=== PATIENT | male | born 1980 | race Two or more races ===

== ENCOUNTER 2018-05-26 14:42 | Emergency (ER) | payer OTHER ==
--- OUTSIDE RECORDS SUMMARY | 2018-05-26 14:48 | XMS REPORT ---
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 Cigarette Use Never Smoked Cigarettes ETOH Use Rarely consumes beer Smoking Patient has never smoked Recreational Drug Use Denies Drug Use Exercise Type/Frequency Exercises sporadically walks on occ Sexual Hx text yes Allergies, Adverse Reactions, Alerts Date Description Reaction Status Severity Comments 12/16/2012 Sulfa Antibiotics rash active Medications Medication Date Status Form Strength Qnty SIG Indications Ordering Provider Multi Vitamin Active Tablets Unknown Daily No Active 12/16/2012 Hx Unknown Medications - 08/31/2014 Medications Administered in Office Medication Date Status Form Strength Qnty SIG Indications Ordering Provider PPD Administered Injection Neal Baig M.D. PPD Administered Injection Nurse Visit 6 C Immunizations CPT Code Status Date Vaccine Lot # [id number] Given 03/07/2016 Varicella (Chicken Pox) Immunization [id number] Given 12/28/2015 Varicella (Chicken Pox) Immunization [id number] Given 08/09/2013 Tdap - Tetanus/Diptheria/Acellular Pertussis [id number] Vital Signs Date Vital Result Comment 05/21/2018 Height 69 inches 5'9" Weight 151.00 lb Heart Rate 68 /min BP Systolic Sitting 114 mmHg BP Diastolic Sitting 68 mmHg O2 % BldC Oximetry 96 % BMI (Body Mass Index) 22.3 kg/m2 06/24/2017 Height 69 inches 5'9" Weight 148.00 lb Heart Rate 69 /min BP Systolic Sitting 99 mmHg BP Diastolic Sitting 62 mmHg Body Temperature 97.1 F O2 % BldC Oximetry 98 % BMI (Body Mass Index) 21.9 kg/m2 Waist Circumference 31 06/27/2016 Weight 138.00 lb Heart Rate 67 /min BP Systolic Sitting 110 mmHg BP Diastolic Sitting 70 mmHg Body Temperature 98.0 F O2 % BldC Oximetry 97 % 05/16/2016 Height 69 inches 5'9" Weight 137.12 lb Heart Rate 66 /min BP Systolic 100 mmHg BP Diastolic 60 mmHg Body Temperature 98.4 F O2 % BldC Oximetry 98 % BMI (Body Mass Index) 20.2 kg/m2 03/07/2016 Height 69 inches 5'9" Weight 134.00 lb Heart Rate 64 /min BP Systolic Sitting 99 mmHg BP Diastolic Sitting 63 mmHg Body Temperature 96.8 F BMI (Body Mass Index) 19.8 kg/m2 12/29/2014 Height 69.50 inches 5'9.50" Weight 147.00 lb Heart Rate 83 /min BP Systolic Sitting 98 mmHg BP Diastolic Sitting 62 mmHg Body Temperature 98.0 F Pain Level 4 O2 % BldC Oximetry 98 % BMI (Body Mass Index) 21.4 kg/m2 08/31/2014 Height 69.50 inches 5'9.50" Weight 149.25 lb Heart Rate 66 /min BP Systolic Sitting 114 mmHg BP Diastolic Sitting 73 mmHg Body Temperature 97.7 F O2 % BldC Oximetry 98 % BMI (Body Mass Index) 21.7 kg/m2 12/16/2012 Height 69.75 inches 5'9.75" Weight 146.75 lb Heart Rate 78 /min BP Systolic Sitting 117 mmHg BP Diastolic Sitting 78 mmHg Peak Flow Meter 31 BMI (Body Mass Index) 21.2 kg/m2 Results Test Date Test Result H/L Range Note Lipid Profile (Trig/Chol/HDL) 06/18/2017 Triglycerides 70 mg/dL 1 Cholesterol 142 mg/dL 2 HDL Cholesterol 40.4 mg/dL 3 LDL Cholesterol 88 mg/dL 4 Laboratory test finding 06/18/2017 Glucose 98 mg/dL 70-100 Laboratory test finding 06/27/2016 Immunoglobulin E (Ige) 20.3 kU/L <= 214 5 Immunoglobulins Serum 06/27/2016 Immunoglobulin G 957 mg/dL 767 - 1590 6 Quant Immunoglobulin M 47 mg/dL 37 - 286 Immunoglobulin A 117 mg/dL 61 - 356 Laboratory test finding 06/27/2016 Erythrocyte Sed Rate 5 mm/Hr 0-14 C Reactive Protein < 1.00 mg/L < 5.00 7 CBC Auto Diff 06/27/2016 White Blood Count 5.5 10^3/uL 3.5-10.8 Red Blood Count 4.93 10^6/uL 4.0-5.4 Hemoglobin 14.7 g/dL 14.0-18.0 Hematocrit 44 % 42-52 Mean Corpuscular Volume 90 fL 80-94 Mean Corpuscular Hemoglobin 30 pg 27-31 Mean Corpuscular HGB Conc 33 g/dL 31-36 Red Cell Distribution Width 13 % 10.5-15 Platelet Count 135 10^3/uL Low 150-450 Mean Platelet Volume 9 um3 7.4-10.4 Abs Neutrophils 2.9 10^3/uL 1.5-7.7 Abs Lymphocytes 1.8 10^3/uL 1.0-4.8 Abs Monocytes 0.4 10^3/uL 0-0.8 Abs Eosinophils 0.4 10^3/uL 0-0.6 Abs Basophils 0 10^3/uL 0-0.2 Abs Nucleated RBC 0 10^3/uL Granulocyte % 52.3 % 38-83 Lymphocyte % 32.5 % 25-47 Monocyte % 8.1 % 1-9 Eosinophil % 6.6 % High 0-6 Basophil % 0.5 % 0-2 Nucleated Red Blood Cells % 0 Lipid Profile (Trig/Chol/HDL) 01/31/2016 Triglycerides 67 mg/dL 8 Cholesterol 131 mg/dL 9 HDL Cholesterol 43.5 mg/dL 10 LDL Cholesterol 74 mg/dL 11 Comp Metabolic Panel 01/31/2016 Sodium 141 mmol/L 133-145 Potassium 4.1 mmol/L 3.5-5.0 Chloride 106 mmol/L 101-111 Co2 Carbon Dioxide 28 mmol/L 22-32 Anion Gap 7 mmol/L 2-11 Glucose 91 mg/dL 70-100 Blood Urea Nitrogen 17 mg/dL 6-24 Creatinine 0.89 mg/dL 0.67-1.17 BUN/Creatinine Ratio 19.1 8-20 Calcium 9.3 mg/dL 8.6-10.3 Total Protein 6.5 g/dL 6.4-8.9 Albumin 4.8 g/dL 3.2-5.2 Globulin 1.7 g/dL Low 2-4 Albumin/Globulin Ratio 2.8 1-3 Total Bilirubin 1.00 mg/dL 0.2-1.0 Alkaline Phosphatase 48 U/L 34-104 Alt 10 U/L 7-52 Ast 14 U/L 13-39 Egfr Non- 96.7 >60 Egfr 124.4 >60 12 Laboratory test finding 01/31/2016 Vitamin D Total 25(Oh) 21.2 ng/mL Low 30-50 13 Laboratory test finding 12/09/2015 Rubella Screen Immune IU/mL Immune Rubeola Measles Igg AB 12/09/2015 Rubeola (Measles) IgG Positive 14 Antibody Rubeola IgG Antibody Index 3.5 15 Varicella Zoster Igg AB 12/09/2015 Varicella-Zoster IgG Antibody Negative 16 Varicella IgG Antibody Index 0.6 17 Mumps Igg 12/09/2015 Mumps Virus IgG Antibody Positive 18 Mumps IgG Antibody Index 2.2 19 Hepatitis B Casey AB Titer 12/09/2015 Hepatitis B Surface AB Reactive Nonreactive Hep B Surf AB Level 278.84 mIU/mL <12 20 Lipid Profile (Trig/Chol/HDL) 08/17/2014 Triglycerides 96 mg/dL 21, 22 Cholesterol 136 mg/dL 21, 23 HDL Cholesterol 40.6 mg/dL 21, 24 LDL Cholesterol 76 mg/dL 21, 25 Laboratory test 08/17/2014 Glucose 98 mg/dL 70-100 21, 26 finding Wound Culture/Sensi 04/21/2014 Wound/Misc Culture-Gram (SEE NOTE) 27 Stain Lipid Profile 12/09/2012 Triglycerides 65 mg/dL 40-200 (Trig/Chol/HDL) Cholesterol 154 mg/dL Less than 200 HDL Cholesterol 42 mg/dL 40-60 28 Cholesterol/HDL Ratio 3.7 Average 1-4.44 LDL Cholesterol 99.0 mg/dL Less Than 100 29 Laboratory test finding 12/09/2012 Glucose 93 mg/dL 70-100 30 1 Desirable <150 Borderline high 150-199 High 200-499 Very High >500 2 Desirable <200 Borderline high 200-239 High >239 3 Low <40 Desirable: 40-60 High: >60 4 Desirable: <100 mg/dL Near Optimal: 100-129 mg/dL Borderline High: 130-159 mg/dL High: 160-189 mg/dL Very High: >189 mg/dL 5 Test Performed by: [facility] - [facility] [address] [place] [address] Marketing And Public Relations Manager: Karl Null II, M.D., Ph.D. 6 Test Performed by: [facility] - [facility] [address] [place] [address] Marketing And Public Relations Manager: Karl Null II, M.D., Ph.D. 7 Acute inflammation: >10.00 8 Desirable <150 Borderline high 150-199 High 200-499 Very High >500 9 Desirable <200 Borderline high 200-239 High >239 10 Low <40 Desirable: 40-60 High: >60 11 Desirable: <100 mg/dL Near Optimal: 100-129 mg/dL Borderline High: 130-159 mg/dL High: 160-189 mg/dL Very High: >189 mg/dL 12 Because ethnic data is not always readily available, this report includes an eGFR for both -Americans and non- Americans. The National Kidney Disease Education Program (NKDEP) does not endorse the use of the MDRD equation for patients that are not between the ages of 18 and 70, are , have extremes of body size, muscle mass, or nutritional status, or are non- or non-. According to the National Kidney Foundation, irrespective of diagnosis, the stage of the disease is based on the level of kidney function: Stage Description GFR(mL/min/1.73 m(2)) 1 Kidney damage with normal or decreased GFR 90 2 Kidney damage with mild decrease in GFR 60-89 3 Moderate decrease in GFR 30-59 4 Severe decrease in GFR 15-29 5 Kidney failure <15 (or dialysis) 13 [id number] Results suggest response to immunization or prior exposure to the virus. REFERENCE VALUE Vaccinated: Positive (>=1.1 AI) Unvaccinated: Negative (<=0.8 AI) 15 Test Performed by: [facility] - [address] [address] Marketing And Public Relations Manager: Karl Null II, M.D., Ph.D. 16 REFERENCE VALUE Vaccinated: Positive (>=1.1 AI) Unvaccinated: Negative (<=0.8 AI) 17 Test Performed by: [facility] - [address] [address] Marketing And Public Relations Manager: Karl Null II, M.D., Ph.D. 18 Results suggest response to immunization or prior exposure to the virus. REFERENCE VALUE Vaccinated: Positive (>=1.1 AI) Unvaccinated: Negative (<=0.8 AI) 19 Test Performed by: [facility] - [address] [address] Marketing And Public Relations Manager: Karl Null II, M.D., Ph.D. 20 This assay does not differentiate between reactivity due to a vaccine-induced immune response or an immune response induced by infection with HBV. 21 FASTING 10 HOUR 22 Desirable <150 Borderline high 150-199 High 200-499 Very High >500 23 Desirable <200 Borderline high 200-239 High >239 24 Low <40 Desirable: 40-60 High: >60 25 Desirable <100 Near Optimal 100-129 Borderline high 130-159 High 160-189 Very High >189 26 FASTING 10 HOUR 27 RUN DATE: 04/23/14 [facility] LAB LIVE PAGE 1 RUN TIME: [id number] 037 [place], [place] [address] Specimen Inquiry Name: ROLAND HOGAN : [address]: Beverley Hou MD Acct: [id number] Unit: [id number] AGE: 33 Location: [facility] Re04/21/14 SEX: M Status: DEP ER SPEC: [id number] ITA: 04/21/14-[address] [facility] [address]: Jacqui CARLOS REQ: [id number] RECD: 04/21/14 STATUS: ALDO MCCORMICK DR: Selena Hou MD _ SOURCE: KNEE,RIGHT SPDESC: ORDERED: Culture Stain Procedure Result Verified Site Wound/Misc Gram Stain Final 04/22/14- 0749 ML 1+ Nucleated Cells No Polys Observed No Organisms Seen Wound/Misc Culture Final 04/23/14- 1039 ML No Growth Day 2 END OF REPORT * ML=Testing performed at Main Lab DEPARTMENT OF PATHOLOGY, [address] [place] [address] Javier Regan M.D. Director [facility] # [id number] 28 HDL Interpretation: Undesirable: High Risk: Less than 40 MG/DL Desirable: Low Risk: Greater than 60 MG/DL 29 LDL Interpretation: Low Risk Optimal Level: LDL Less than 100 MG/DL Near or Above Optimal: LDL 100-129 MG/DL Borderline High Risk: LDL 130-159 MG/DL High Risk: LDL 160-189 MG/DL Very High Risk: LDL Greater than 189 MG/DL 30 PT IS FASTING Procedures Date CPT Code Description Status 06/24/2017 50018 Admin & Interp Of Health Risk Assessment w/ Patient Completed Encounters Type Date Location Provider CPT E/Karol Dx Office Visit 06/24/2017 [facility] Internal Medicine Neal Baig, 09496 Z00.00 9:20a - Estefania Gould Office Visit 06/27/2016 [facility] Internal Medicine Neal Baig, 25664 L29.9 1:20p - Estefania Gould Office Visit 05/16/2016 [facility] Internal Medicine Neal Baig, 88287 L98.9 2:20p - Estefania Gould Office Visit 03/07/2016 [facility] Internal Medicine Neal Baig 94598 Z00.00 3:00p - Rosalino Gould Z23 Office Visit 12/29/2014 2:00p [facility] Internal Medicine Neal Baig, 67558 528.2 - Rosalino Gould Office Visit 08/31/2014 2:00p [facility] Internal Medicine Neal Baig, 29318 V70.0 - Rosalino Gould 709.9 Office Visit 12/16/2012 9:00a [facility] Medicine Selena Petersen M.D. 96658 V70.0 - [place] Plan of Care Future Appointment(s):06/25/2018 11:00 am - Neal Baig M.D. at [facility] Internal Medicine - Dpuswtwid73/12/2018 - Neal Baig M.D.H91.91 Unspecified hearing loss, right earNew Orders:bilat ear ;lavageComments:Muffled heating on the R fro 2 days after getting water in his ears and nose. (+) bilat cerumen impaction on exam. No other ear sx at present. Ears lavaged with some clearing on the L, but still blocked on the R. ENT eval advisedReferral:Álvaro Horowitz MD, Otolaryngology
[2018-05-26 14:51] VITALS: BP 100/58
--- NOTE | 2018-05-26 15:58 | UC ---
Ear Complaint HPI - HPI Summary HPI Summary: 37 yo male presents with RIGHT ear pain. He tells me that he was at his PCP's office late last week and told he had ear wax in this ear - they tried to flush it but could not get it all out. Pt was then referred to ENT. He cannot see ENT until late next month and presents here for continued right ear pain. He tells me that he has also been swimming a lot recently and wonders if there is an infection. Denies fever, chills, sinus symptoms, headache, or dizziness. - History of Current Complaint Chief Complaint: UCEar Stated Complaint: EAR PAIN Time Seen by Provider: 05/26/18 15:52 Hx Obtained From: Patient Severity Currently: None Pain Intensity: 0 - Allergies/Home Medications Allergies/Adverse Reactions: Allergies Allergy/AdvReac Type Severity Reaction Status Date / Time Sulfa (Sulfonamide Allergy Rash And Verified 05/26/18 14:52 Antibiotics) Itching PMH/Surg Hx/FS Hx/Imm Hx - Additional Past Medical History Additional PMH: None - Surgical History Surgical History: None - Family History Known Family History: Positive: None - Social History Occupation: Employed Full-time Lives: With Family Alcohol Use: Rare Substance Use Type: None Smoking Status (MU): Never Smoked Tobacco - Immunization History Most Recent Tetanus Shot: 2013 Review of Systems Constitutional: Negative Skin: Negative Eyes: Negative ENT: Ear Ache Respiratory: Negative Cardiovascular: Negative Gastrointestinal: Negative Neurovascular: Negative Neurological: Negative Psychological: Negative All Other Systems Reviewed And Are Negative: Yes Physical Exam - Summary Physical Exam Summary: GENERAL: NAD. WDWN. No pain distress. SKIN: No rashes, sores, lesions, or open wounds. HEENT: Head: AT/NC Eyes: EOM intact. Conjunctiva clear without inflammation or discharge. Ears: Hearing grossly normal. RIGHT EAR: Moderate cerumen with mild canal erythema. LEFT EAR: WNL. Nose: Nasal mucosa pink and moist. NTTP maxillary and frontal sinus. Throat: Posterior oropharynx without exudates, erythema, or tonsillar enlargement. Uvula midline. NECK: Supple. Nontender. No lymphadenopathy. CHEST: CTAB. No r/r/w. No accessory muscle use. Breathing comfortably and in no distress. CV: RRR. Without m/r/g. Pulses intact. NEURO: Alert. PSYCH: Age appropriate behavior. Triage Information Reviewed: Yes Vital Signs: Initial Vital Signs Temp 97.5 F 05/26/18 14:47 Pulse 70 05/26/18 14:47 Resp 16 05/26/18 14:47 BP 100/58 05/26/18 14:47 Pulse Ox 97 05/26/18 14:47 Vital Signs Reviewed: Yes Ear Complaint Course/Dx - Course Course Of Treatment: Right ear irrigation with successful removal of cerumen - pt states it feels much better. Appears to have underlying mild otitis externa with scant white discharge. Will treat for otitis externa with Cortisporin - Differential Dx/Diagnosis Provider Diagnoses: Right ear cerumen impaction. Right otitis externa Discharge - Sign-Out/Discharge Documenting (check all that apply): Patient Departure All imaging exams completed and their final reports reviewed: No Studies - Discharge Plan Condition: Stable Disposition: HOME Prescriptions: Neomyc/Polym/HC 1% OTIC SUSP* [Cortisporin Otic Susp 1%*] 4 drop RIGHT EAR BID # 1 btl Patient Education Materials: Otitis Externa (ED) Referrals: Neal Baig MD [Primary Care Provider] - Additional Instructions: If you develop a fever, shortness of breath, chest pain, new or worsening symptoms - please call your PCP or go to the ED. - Billing Disposition and Condition Condition: STABLE Disposition: Home - Attestation Statements Provider Attestation: I was available for consult. This patient was seen by the RODNEY. The patient was not presented to, seen by, or examined by me. -Sean
== END 2018-05-26 17:21 | disposition home or self-care (01) ==
LOC: UCEAST 14:42
CPT/HCPCS: 99203; G0463

== ENCOUNTER 2018-09-11 15:26 | Emergency (ER) | payer OTHER ==
[2018-09-11] MEDS ORDERED: NS 0.9% 1000 ML* 1,000 ML IV ONE (16:31)
[2018-09-11] MEDS: Ketorolac INJ* 30 MG/ML 1 ML VIAL IV PUSH ONE ×3 (16:43→16:44)
[2018-09-11 16:44] LABS: ABS Basophils 0.1 10^3/ul (0-0.2); ABS Eosinophils 0.2 10^3/ul (0-0.6); ABS Lymphocytes 1.2 10^3/ul (1.0-4.8); ABS Monocytes 0.4 10^3/ul (0-0.8); ABS Neutrophils 8.8 10^3/ul (1.5-7.7); ABS Nucleated RBC 0 10^3/ul; Eosinophil % 2.2 %; Hematocrit 47 % (42-52); Hemoglobin 16.1 g/dl (14.0-18.0); Lymphocyte % 10.9 %; Mean Corpuscular HGB Conc 34 g/dl (31-36); Mean Corpuscular Hemoglobin 31 pg (27-31); Mean Corpuscular Volume 91 fL (80-94); Mean Platelet Volume 7.9 fL (7.4-10.4); Nucleated Red Blood Cells % 0.1; Platelet Count 153 10^3/ul (150-450); Red Blood Count 5.18 10^6/ul (4.00-5.40); Red Cell Distribution Width 13 % (10.5-15); White Blood Count 10.7 10^3/ul (3.5-10.8)
[2018-09-11 17:03] LABS: ALT 16 U/L (7-52); AST 18 U/L (13-39); Albumin 5.1 g/dL (3.2-5.2); Albumin/Globulin Ratio 2.3 (1-3); Alkaline Phosphatase 57 U/L (34-104); Anion Gap 8 mmol/L (2-11); Blood Urea Nitrogen 18 mg/dL (6-24); C Reactive Protein < 1.00 mg/L (<8.01); CO2 Carbon Dioxide 28 mmol/L (22-32); Calcium 9.4 mg/dL (8.6-10.3); Chloride 106 mmol/L (101-111); EGFR Non-African American 78.2 (>60); Globulin 2.2 g/dL (2-4); Glucose 118 mg/dL (70-100); Potassium 3.7 mmol/L (3.5-5.0); Sodium 142 mmol/L (135-145); Total Protein 7.3 g/dL (6.4-8.9)
[2018-09-11] MEDS ORDERED: Tamsulosin CAP* 0.4 MG PO ONE (18:42)
--- NOTE | 2018-09-11 18:42 | ED ---
GI/ HPI - HPI Summary HPI Summary: 37 year-old male presents with right flank pain today. He denies any history of kidney stones. He states he is not able to urinate. No fevers. No nausea and vomiting. He states his pain is extreme. pain started in RUQ and then radiates to his back. He's never had this pain before. He has no medical conditions. Denies any chest pain or shortness breath. No diarrhea or constipation. - History of Current Complaint Chief Complaint: EDAbdPain Time Seen by Provider: 09/11/18 16:31 Stated Complaint: ABD PAIN Pain Intensity: 10 - Allergy/Home Medications Allergies/Adverse Reactions: Allergies Allergy/AdvReac Type Severity Reaction Status Date / Time Sulfa (Sulfonamide Allergy Rash And Verified 05/26/18 14:52 Antibiotics) Itching PMH/Surg Hx/FS Hx/Imm Hx Endocrine/Hematology History: Denies: Hx Diabetes, Hx Thyroid Disease Cardiovascular History: Denies: Hx Hypertension Respiratory History: Denies: Hx Asthma, Hx Chronic Obstructive Pulmonary Disease (COPD) GI History: Denies: Hx Ulcer Infectious Disease History: No Infectious Disease History: Denies: Hx Hepatitis, Hx Human Immunodeficiency Virus (HIV), Traveled Outside the [place] in Last 30 Days - Family History Known Family History: Positive: None - Social History Alcohol Use: Rare Substance Use Type: Reports: None Smoking Status (MU): Never Smoked Tobacco Review of Systems Negative: Fever Negative: Chest Pain Negative: Shortness Of Breath Positive: flank pain All Other Systems Reviewed And Are Negative: Yes Physical Exam Triage Information Reviewed: Yes Vital Signs On Initial Exam: Initial Vitals Temp Pulse Resp BP Pulse Ox 96.5 F 63 18 145/87 100 09/11/18 15:28 09/11/18 15:28 09/11/18 15:28 09/11/18 15:28 09/11/18 15:28 Vital Signs Reviewed: Yes Appearance: Positive: Pain Distress Skin: Positive: Warm, Dry Head/Face: Positive: Normal Head/Face Inspection Eyes: Positive: Normal, EOMI, DANNY, Conjunctiva Clear ENT: Positive: Normal ENT inspection, Pharynx normal, TMs normal Respiratory/Lung Sounds: Positive: Clear to Auscultation, Breath Sounds Present Cardiovascular: Positive: Normal, RRR Abdomen Description: Positive: Soft, CVA Tenderness (R), Other: - tenderness right side abd Bowel Sounds: Positive: Present Musculoskeletal: Positive: Normal Neurological: Positive: Normal Psychiatric: Positive: Normal Diagnostics - Vital Signs Vital Signs Temp Pulse Resp BP Pulse Ox 09/11/18 15:28 96.5 F 63 18 145/87 100 - Laboratory Lab Results: Lab Results 09/11/18 09/11/18 09/11/18 Range/Units 16:30 16:30 16:30 WBC 10.7 (3.5-10.8) 10^3/ul RBC 5.18 (4.00-5.40) 10^6/ul Hgb 16.1 (14.0-18.0) g/dl Hct 47 (42-52) % MCV 91 (80-94) fL MCH 31 (27-31) pg MCHC 34 (31-36) g/dl RDW 13 (10.5-15) % Plt Count 153 (150-450) 10^3/ul MPV 7.9 (7.4-10.4) fL Neut % (Auto) 82.5 % Lymph % (Auto) 10.9 % [place] % (Auto) 3.9 % Eos % (Auto) 2.2 % Baso % (Auto) 0.5 % Absolute Neuts (auto) 8.8 H (1.5-7.7) 10^3/ul Absolute Lymphs (auto) 1.2 (1.0-4.8) 10^3/ul Absolute Monos (auto) 0.4 (0-0.8) 10^3/ul Absolute Eos (auto) 0.2 (0-0.6) 10^3/ul Absolute Basos (auto) 0.1 (0-0.2) 10^3/ul Absolute Nucleated RBC 0 10^3/ul Nucleated RBC % 0.1 Sodium 142 (135-145) mmol/L Potassium 3.7 (3.5-5.0) mmol/L Chloride 106 (101-111) mmol/L Carbon Dioxide 28 (22-32) mmol/L Anion Gap 8 (2-11) mmol/L BUN 18 (6-24) mg/dL Creatinine 1.06 (0.67-1.17) mg/dL Est GFR ( Amer) 94.6 (>60) Est GFR (Non-Af Amer) 78.2 (>60) BUN/Creatinine Ratio 17.0 (8-20) Glucose 118 H (70-100) mg/dL Lactic Acid 2.0 (0.5-2.0) mmol/L Calcium 9.4 (8.6-10.3) mg/dL Total Bilirubin 0.60 (0.2-1.0) mg/dL AST 18 (13-39) U/L ALT 16 (7-52) U/L Alkaline Phosphatase 57 (34-104) U/L C-Reactive Protein < 1.00 (<8.01) mg/L Total Protein 7.3 (6.4-8.9) g/dL Albumin 5.1 (3.2-5.2) g/dL Globulin 2.2 (2-4) g/dL Albumin/Globulin Ratio 2.3 (1-3) Lipase 24 (11.0-82.0) U/L Result Diagrams: 09/11/18 16:30 09/11/18 16:30 Lab Statement: Any lab studies that have been ordered have been reviewed, and results considered in the medical decision making process. - CT abd CT Interpretation Completed By: Radiologist Summary of CT Findings: IMPRESSION: There is moderate right hydronephrosis with 2 mm calculi at the urinary. bladder which may be just at or distal to the right ureterovesicular junction. GIGU Course/Dx - Course Course Of Treatment: 37 year-old male presents with right flank pain today. He denies any history of kidney stones. He states he is not able to urinate. No fevers. No nausea and vomiting. He states his pain is extreme. pain started in RUQ and then radiates to his back. He's never had this pain before. He has no medical conditions. Denies any chest pain or shortness breath. No diarrhea or constipation. On exam tenderness of the right flank and right-sided abdomen. White blood count normal. CRP normal. CT shows a 2 mm stone at the UVJ. Toradol and pain resolved. Will prescribe Flomax and pain medication. We 'll follow-up with urology. Patient understands agrees with plan. - Diagnoses Differential Diagnoses - Male: Pyelonephritis, Ureteral Calculi, Urinary Tract Infection Provider Diagnoses: Ureteral stone Discharge - Sign-Out/Discharge Documenting (check all that apply): Patient Departure - Discharge Plan Condition: Good Disposition: HOME Prescriptions: Ondansetron ODT TAB* [Zofran 4 MG Odt TAB*] 4 mg PO Q6H PRN #8 tab.odt PRN Reason: Nausea oxyCODONE/Acetamin 5/325 MG* [Percocet 5/325 TAB*] 1 tab PO Q6H PRN #16 tab MDD 4 PRN Reason: Pain Tamsulosin CAP* [Flomax CAP*] 0.4 mg PO DAILY #6 cap Patient Education Materials: Ureteral Stones (ED) Referrals: Neal Baig MD [Primary Care Provider] - Jose Hollis MD [Medical Doctor] - Additional Instructions: Take ibuprofen every 6 hours and narcotic as needed every 6 hours Take Zofran every 6 hours for nausea as needed Take Flomax daily starting tomorrow, first dose given in ED until stone expelled , make sure stand up slowly Follow up with urology, call office tomorrow for appointment Strain urine until collect stone Return to ED if unable to manage pain at home, develop fever, or any new or worsening symptoms - Billing Disposition and Condition Condition: GOOD Disposition: Home
[2018-09-11 18:54] LABS: Urine Appearance Cloudy; Urine Bacteria Absent (Absent); Urine Bilirubin Negative (Negative); Urine Blood 2+ (Negative); Urine Color Yellow; Urine Glucose Negative (Negative); Urine Ketones 2+ (Negative); Urine Nitrite Negative (Negative); Urine Protein Negative (Negative); Urine Red Blood Cell 1+(3-5/hpf) (Absent); Urine Specific Gravity 1.026 (1.010-1.030); Urine Urobilinogen Negative (Negative); Urine White Blood Cell 1+(6-10/hpf) (Absent)
[2018-09-11 19:41] VITALS: BP 141/77
== END 2018-09-11 19:40 | disposition home or self-care (01) ==
LOC: ED 15:26
DX: N20.1 Calculus of ureter (principal); R10.84 Generalized abdominal pain
CPT/HCPCS: 36415; 74176; 80053; 81003; 81015; 83605; 83690; 85025; 86140; 87086; 96361; 96374; 99283; J1885